=== PATIENT | male | born 1960 | race Caucasian/White ===

== ENCOUNTER → 2017-07-09 | Outpatient (CLI) | payer MEDICARE ==
[~2017-07-09] MED LIST: CIAL10TA PO; LISI-360 PO; OXYC-407 PO; OXYC1TAB36 PO; PREG100 PO
[2017-07-09 08:00] LABS: HEMATOCRIT 42.4 % (39.0-51.0); MEAN CELL VOLUME 91.6 FL (80.0-100.0); MEAN CORPUSCULAR HEMOGLOBIN 30.2 PG (27.0-34.0); PLATELET COUNT 159 TH/MM3 (150-450); RED BLOOD COUNT 4.63 MIL/MM3 (4.50-5.90); RED CELL DISTRIBUTION WIDTH 18.2 % (11.6-17.2); REVIEW FLAG FINAL
[2017-07-09 08:22] LABS: ALKALINE PHOSPHATASE 82 U/L (45-117); HDL CHOLESTEROL 98.7 MG/DL (40.0-60.0); TOTAL BILIRUBIN ADULT 1.7 MG/DL (0.2-1.0)
[2017-07-09 08:34] LABS: ALT (GPT) 46 U/L (12-78); ANION GAP 8 MEQ/L (5-15); AST (GOT) 54 U/L (15-37); BICARBONATE 29.5 MEQ/L (21.0-32.0); BLOOD UREA NITROGEN 16 MG/DL (7-18); CHLORIDE 101 MEQ/L (98-107); GLOMERULAR FILTRATION RATE 82 ML/MIN (>89); GLUCOSE,FASTING 90 MG/DL (74-99); LDL CHOLESTEROL 49 MG/DL (0-99); POTASSIUM 3.9 MEQ/L (3.5-5.1); SODIUM (NA) 138 MEQ/L (136-145)
== END ==
LOC: CLAB 07:29
PROVIDERS: ATTEND Family Medicine
DX: I10 Essential (primary) hypertension (principal)
CPT/HCPCS: 36415; 80053; 80061; 85027

== ENCOUNTER 2018-01-15 09:10 | Emergency (ER) | payer MEDICARE ==
[~2018-01-15] VITALS: Ht 177.8 cm; Wt 84.0 kg
[~2018-01-15 09:10] MED LIST changes: -LISI-360 PO; +OXYC-433 PO; -PREG100 PO
[2018-01-15 09:12] VITALS: BP 170/108; PULSE 125; RESP 16; TEMP 98; O2SAT 100
[2018-01-15] MEDS ORDERED: SULFAMETHOXAZOLE-TRIMETHOPRIM DS 800-160 MG TAB PO ONE (09:45)
[2018-01-15] MEDS ORDERED: TETANUS/DIPHTHERIA TOXOID ADULT 0.5 ML VIAL IM ONE (09:45)
--- NOTE | 2018-01-15 09:50 | PD ---
HPI Chief Complaint: Laceration/Skin Injury Time Seen by Provider: 09:33 Travel History International Travel<30 days: No Contact w/Intl Traveler<30days: No Traveled to known affect area: No History of Present Illness HPI 58yo M with PMH of chronic back pain on oxycodone presents to the ED with c/o laceration in right heel at 9pm yesterday. Pt slipped on sand and sliced the back of his right ankle on metal door at 9pm yesterday. Denies any other injuries and able to ambulate after. Denies any fever, chest pain, sob, n/v, abdominal pain, focal weakness or numbness. Tetanus not up to date. PFSH Past Medical History Cardiovascular Problems: Yes Diminished Hearing: No Hypertension: Yes Musculoskeletal: Yes Tetanus Vaccination: > 5 Years Influenza Vaccination: Yes Past Surgical History Joint Replacement: Yes (RIGHT KNEE) Social History Alcohol Use: Yes Tobacco Use: No Substance Use: No Allergies-Medications (Allergen,Severity, Reaction): Coded Allergies: ragweed pollen (Unverified Allergy, Intermediate, Swelling, 01/15/18) Reported Meds & Prescriptions Reported Meds & Active Scripts Active Oxycodone-Acetaminophen 10-325 mg Tab 1 Tab PO Q6H PRN Do not fill before 01/14/18 Oxycodone ER (Oxycodone HCl) 80 Mg Tab 80 Mg PO Q6HR Cialis (Tadalafil) 10 Mg Tab 10 Mg PO DAILY PRN Do not exceed 1 dose/day. Review of Systems Except as stated in HPI: all other systems reviewed are Neg Physical Exam Narrative GENERAL: 58yo M in mild distress. SKIN: Focused skin assessment warm/dry. HEAD: Atraumatic. Normocephalic. EYES: Pupils equal and round. No scleral icterus. No injection or drainage. ENT: No nasal bleeding or discharge. Mucous membranes pink and moist. NECK: Trachea midline. No JVD. CARDIOVASCULAR: Regular rate and rhythm. No murmur appreciated. RESPIRATORY: No accessory muscle use. Clear to auscultation. Breath sounds equal bilaterally. GASTROINTESTINAL: Abdomen soft, non-tender, nondistended. MUSCULOSKELETAL: Right ankle: +4cm superficial laceration posterior ankle 3cm above malleolus. Negative reyes test. FROM in ankle. No ttp medial or lateral malleolus. DP 2+. Sensation intact. NEUROLOGICAL: Awake and alert. No obvious cranial nerve deficits. Motor grossly within normal limits. Normal speech. PSYCHIATRIC: Appropriate mood and affect; insight and judgment normal. Data Data Last Documented VS Vital Signs Date Time Temp Pulse Resp B/P (MAP) Pulse Ox O2 Delivery O2 Flow Rate FiO2 01/15/18 09:12 98.0 125 16 170/108 (128) 100 Orders Orders Tetanus/Diphtheria Tox Adult (Tetanus/Di (01/15/18 09:45) Sulfamet-Trimeth Ds 800-160 Mg (Bactrim (01/15/18 09:45) Lidocaine 1% Inj (Xylocaine 1% Inj) (01/15/18 10:00) [facility] Medical Decision Making Medical Screen Exam Complete: Yes Emergency Medical Condition: Yes Differential Diagnosis Laceration vs. wound check Narrative Course 58yo M with superficial laceration to right posterior ankle. Negative reyes test. Archilles tendon intact with normal plantar flexion. Pt updated on tetanus. Said he does not want anything for pain. Wound is superficial and unable to visualize bottom of wound. Laceration repaired. Pt given bactrim. Return precautions given. Procedures Procedure Narrative LACERATION LOCATION: Posterior ankle LENGTH: 4cm NUMBER OF STITCHES/ALFREDO: 7 REPAIR: The area of the laceration was prepped with Betadine and sterilely draped. The laceration was infiltrated with 3cc of 1% lidocaine. The wound was copiously irrigated and explored without evidence of foreign body, tendon injury or neurovascular injury. The wound was closed using 5-0 nylon. This was a single layer repair. A sterile dressing was applied. The patient was advised to keep the dressing clean and dry. Patient tolerated the procedure well. Diagnosis Primary Impression: Laceration of ankle Qualified Codes: S91.011A - Laceration without foreign body, right ankle, initial encounter Patient Instructions: General Instructions Departure Forms: Tests/Procedures Additional Instructions: Please follow up with your primary care physician or return to the ED in 10 days for suture removal. Please return to the ED immediately if any signs of infection. Med/Other Pt SpecificInfo: Prescription(s) given Scripts Sulfamethoxazole-Trimethoprim (Bactrim DS) 800-160 Mg Tab 1 TAB PO BID for Infection, #20 TAB 0 Refills Prov: Elyssa Collazo 01/15/18 Disposition: 01 DISCHARGE HOME Condition: Stable Elyssa Collazo 3, 2018 09:50
[2018-01-15] MEDS ORDERED: LIDOCAINE HCL 1% 20 ML VIAL INFIL ONE (10:00)
[2018-01-15] MEDS ORDERED: BACT800T5 PO (10:38)
== END 2018-01-15 11:00 | disposition home or self-care (01) ==
LOC: NEPD 09:10
DX: S91.311A Laceration without foreign body, right foot, initial encounter (principal); I10 Essential (primary) hypertension; Z23 Encounter for immunization; Z79.899 Other long term (current) drug therapy; W45.8XXA Other foreign body or object entering through skin, initial encounter; Y92.832 Beach as the place of occurrence of the external cause
CPT/HCPCS: 12002; 90471; 90714